=== PATIENT | male | born 1970 | race Caucasian/White ===

== ENCOUNTER 2022-07-04 09:33 | Emergency (ER) | payer OTHER ==
[2022-07-04 09:37] VITALS: TEMP 98.3
[2022-07-04] MEDS ORDERED: RX INFO: IV CONTRAST WAS GIVEN 1 EACH MISC MISCELLANE PRN (09:43)
[2022-07-04 09:58] LABS: Basophils # (A) 0.1 k/uL (0-0.2); Basophils % (A) 1 %; Eosinophils # (A) 0.3 k/uL (0-0.7); Eosinophils % (A) 4 %; HCT 45.2 % (39.0-53.0); HGB 14.9 gm/dL (13.0-17.5); Lymphocytes # (A) 1.8 k/uL (1.0-4.8); Lymphocytes % (A) 26 %; MCH 31.5 pg (25.0-35.0); MCHC 32.9 g/dL (31.0-37.0); MCV 95.9 fL (80.0-100.0); Mean Platelet Volume 8.8; Monocytes # (A) 0.4 k/uL (0-1.0); Monocytes % (A) 6 %; Neutrophils # (A) 4.1 k/uL (1.3-7.7); Neutrophils % (A) 61 %; Platelet Count 170 k/uL (150-450); RBC 4.71 m/uL (4.30-5.90); RDW 12.3 % (11.5-15.5); WBC 6.8 k/uL (3.8-10.6)
--- NOTE | 2022-07-04 10:12 | ED ---
General Adult HPI - General Chief complaint: Skin/Abscess/Foreign Body Stated complaint: lump under arm Time Seen by Provider: 07/04/22 09:39 Source: patient, RN notes reviewed Mode of arrival: ambulatory Limitations: no limitations - History of Present Illness Initial comments: This a 51-year-old male presents emergency Department chief complaint a lump in his right armpit. Patient states that does it for the last week states that it is painful at times, feels warm to touch at times. Patient states usually mesh and he does not feel well feels that he has a fever. Patient denies any skin changes states is just a large firm bump. Patient denies any drainage he has been taking Bactrim which was prescribed to him. Patient denies any prior surge sherry of this region patient offers no other complaints. - Related Data Allergies Allergy/AdvReac Type Severity Reaction Status Date / Time No Known Allergies Allergy Verified 07/04/22 09:37 Review of Systems ROS Statement: Those systems with pertinent positive or pertinent negative responses have been documented in the HPI. ROS Other: All systems not noted in ROS Statement are negative. Past Medical History Past Medical History: No Reported History History of Any Multi-Drug Resistant Organisms: None Reported Past Surgical History: No Surgical Hx Reported Past Psychological History: No Psychological Hx Reported Smoking Status: Current every day smoker Past Alcohol Use History: None Reported Past Drug Use History: None Reported General Exam Limitations: no limitations General appearance: alert, in no apparent distress Head exam: Present: atraumatic, normocephalic, normal inspection Neck exam: Present: normal inspection, full ROM. Absent: tenderness, meningismus, lymphadenopathy Respiratory exam: Present: normal lung sounds bilaterally. Absent: respiratory distress, wheezes, rales, rhonchi, stridor Cardiovascular Exam: Present: regular rate, normal rhythm, normal heart sounds. Absent: systolic murmur, diastolic murmur, rubs, gallop, clicks Extremities exam: Present: other (Right axilla, right anterior chest wall there is firm mass approximately 5 cm with no erythematous skin changes no drainage noted) Skin exam: Present: warm, dry, intact, normal color. Absent: rash Course Vital Signs 07/04/22 09:34 Temperature 98.3 F Pulse Rate 77 Respiratory 16 Rate Blood Pressure 139/86 O2 Sat by Pulse 98 Oximetry Medical Decision Making - Medical Decision Making 51-year-old male presented for right axilla mass. Patient CT shows enlarged ly mph nodes heterogeneous with mild inflammatory changes. Patient has no definite abscess labwork unremarkable. Patient is only taken a day and a half worth of antibiotics will continue on oral antibiotics. Follow-up with surgery for possible excision versus biopsy if no improvement. Patient agrees to plan. - Lab Data Result diagrams: 07/04/22 09:54 07/04/22 09:54 Lab Results 07/04/22 07/04/22 Range/Units 09:54 09:54 WBC 6.8 (3.8-10.6) k/uL RBC 4.71 (4.30-5.90) m/uL Hgb 14.9 (13.0-17.5) gm/dL Hct 45.2 (39.0-53.0) % MCV 95.9 (80.0-100.0) fL MCH 31.5 (25.0-35.0) pg MCHC 32.9 (31.0-37.0) g/dL RDW 12.3 (11.5-15.5) % Plt Count 170 (150-450) k/uL MPV 8.8 Neutrophils % 61 % Lymphocytes % 26 % Monocytes % 6 % Eosinophils % 4 % Basophils % 1 % Neutrophils # 4.1 (1.3-7.7) k/uL Lymphocytes # 1.8 (1.0-4.8) k/uL Monocytes # 0.4 (0-1.0) k/uL Eosinophils # 0.3 (0-0.7) k/uL Basophils # 0.1 (0-0.2) k/uL Sodium 138 (137-145) mmol/L Potassium 4.3 (3.5-5.1) mmol/L Chloride 102 (98-107) mmol/L Carbon Dioxide 24 (22-30) mmol/L Anion Gap 12 mmol/L BUN 14 (9-20) mg/dL Creatinine 0.94 (0.66-1.25) mg/dL Est GFR (CKD-EPI)AfAm >90 (>60 ml/min/1.73 sqM) Est GFR (CKD-EPI)NonAf >90 (>60 ml/min/1.73 sqM) Glucose 120 H (74-99) mg/dL Calcium 8.7 (8.4-10.2) mg/dL Disposition Clinical Impression: Axillary lymphadenopathy Disposition: HOME SELF-CARE Condition: Stable Instructions (If sedation given, give patient instructions): Lymphadenopathy (ED) Additional Instructions: Please return to the Emergency Department if symptoms worsen or any other concerns. Is patient prescribed a controlled substance at d/c from ED?: No Referrals: None,Stated [Primary Care Provider] - 1-2 days Francoise Bates MD [STAFF PHYSICIAN] - 1-2 days Time of Disposition: 12:14
[2022-07-04 10:22] LABS: African American GFR (CKD) >90 (>60 ml/min/1.73 sqM); Anion Gap 12 mmol/L; Blood Urea Nitrogen 14 mg/dL (9-20); Calcium 8.7 mg/dL (8.4-10.2); Carbon Dioxide 24 mmol/L (22-30); Chloride 102 mmol/L (98-107); Glucose 120 mg/dL (74-99); Non-African American GFR(CKD) >90 (>60 ml/min/1.73 sqM); Potassium 4.3 mmol/L (3.5-5.1); Sodium 138 mmol/L (137-145)
--- NOTE | 2022-07-04 11:05 | CT ---
EXAMINATION TYPE: CT chest w con DATE OF EXAM: 07/04/2022 COMPARISON: HISTORY: mass CT DLP: 525.2 mGycm Automated exposure control for dose reduction was used. CONTRAST: CT scan of the chest is performed with IV Contrast, patient injected with 100 mL of Isovue 300. FINDINGS: The right axilla shows an enlarged node with heterogeneous density, there is some surroundi ng inflammatory change, some additional nodes are present which are not enlarged by CT size criteria, an additional enlarged node is present with some borderline enlarged nodes also noted. Sebaceous cyst is likely present in the posterior midline within the subcutaneous fat measuring 3.5 c m LUNGS: The lungs are grossly clear, there is no concerning parenchymal mass or nodule identified. T here is no pleural effusion or pneumothorax seen. The tracheobronchial tree is patent. MEDIASTINUM: There are no greater than 1 cm hilar or mediastinal lymph nodes. No pericardial effusi on is seen. AORTA: No additional significant abnormality is seen. OTHER: Liver shows low attenuation likely due to underlying hepatic steatosis. There are probable as sociated cysts within the left lobe. Spleen is enlarged.. IMPRESSION: Right axillary adenopathy with some inflammatory change. Splenomegaly and possible hepat ic steatosis. Additional findings above.
[2022-07-04 12:57] VITALS: BP 131/87; PULSE 74; RESP 18
== END 2022-07-04 12:56 | disposition home or self-care (01) ==
LOC: EC 09:33
DX: L04.2 Acute lymphadenitis of upper limb (principal); F17.200 Nicotine dependence, unspecified, uncomplicated
CPT/HCPCS: 36415; 80048; 85025; 71260; 99283; Q9967